=== PATIENT | female | born 1980 | race Caucasian/White ===

== ENCOUNTER 2017-06-25 12:59 | Emergency (ER) | payer SELFPAY ==
--- NOTE | 2017-06-25 13:06 | EDPHY ---
H & P Time Seen by Provider: 06/25/17 13:05 HPI/ROS: CHIEF COMPLAINT: Seizure HISTORY OF PRESENT ILLNESS: The patient presents to the ED after reported grand mal seizure at home. The patient reports remote history of seizure disorder. She is not on any anti epileptic medications currently. The patient does have a history of anxiety and depression. The patient is on a number of medications including Adderall and Zoloft. The patient did recently start Pristiq. The patient reports that she has had decreased sleep and insomnia secondary to stress surrounding her current family situation. The patient denies any additional coingestion as. She denies significant drug or alcohol use. The patient did bite her tongue is result of procedure today. She denies any additional significant traumatic injury. REVIEW OF SYSTEMS: A comprehensive 10 point review of systems is otherwise negative aside from elements mentioned in the history of present illness. Source: Patient Exam Limitations: No limitations - Medical/Surgical History Hx Asthma: No Hx Chronic Respiratory Disease: No Hx Diabetes: No Hx Cardiac Disease: No Hx Renal Disease: No Hx Cirrhosis: No Hx Alcoholism: No Hx HIV/AIDS: No Hx Splenectomy or Spleen Trauma: No Other PMH: Lymphoma. Bone Marrow transplant x2. hypothyroid. shoulder surgery. ongoing spinal nerve pain. skin infections - Social History Smoking Status: Never smoked - Physical Exam Exam: General Appearance: Alert, no distress, mildly postictal Head: Normocephalic atraumatic Neck: No midline cervical spine pain, normal range of motion Eyes: Pupils equal and round no pallor or injection ENT, Mouth: Mucous membranes moist, small nonsuturable tongue bite Respiratory: There are no retractions, lungs are clear to auscultation Cardiovascular: Slight tachycardia Gastrointestinal: Abdomen is soft and nontender, no masses, bowel sounds normal Neurological: A&O, normal motor function, normal sensory exam, normal cranial nerves Skin: Warm and dry, no rashes Musculoskeletal: Neck is supple nontender Extremities: Atraumatic Constitutional: Initial Vital Signs Temperature (C) 36.6 C 06/25/17 12:59 Heart Rate 102 H 06/25/17 12:59 Respiratory Rate 16 06/25/17 12:59 Blood Pressure 118/83 H 06/25/17 12:59 O2 Sat (%) 100 06/25/17 12:59 O2 Delivery Mode Room Air Allergies/Adverse Reactions: Sulfa (Sulfonamide Antibiotics) Allergy (Severe, Verified 12/25/15 19:29) Anaphylaxis Home Medications: Medication Instructions Recorded Amphet Asp and D/Amphet [Adderall 10 mg PO TID@0800,1200,1600 12/25/15 10 MG (*)] Dextroamphetamine/Amphetamine 30 mg PO DAILY 12/25/15 [Adderall Xr 30 mg Capsule] Estradiol [Vivelle-Dot 0.1MG (*)] 0.1 mg TD TUSA@0800 12/25/15 Levothyroxine [Synthroid 150 mcg 150 mcg PO DAILY06 12/25/15 (*)] Sertraline HCl [Zoloft 100mg (*)] 150 mg PO DAILY 12/25/15 Medical Decision Making - Diagnostics EKG Interpretation: EKG: Complete interpretation has been separately recorded in the [employer] archive. Summary impression: Sinus rhythm, rate 99, no ST segment elevation or depression, no QRS widening ED Course/Re-evaluation: The patient presents to the ED after witnessed seizure. The patient had no recurrent seizure activity in the emergency department. She has no traumatic injury aside from the superficial tongue abrasion. The patient did recently start Pristiq which certainly could have lowered her seizure threshold. The patient is noted to have a slight acidosis with a CO2 of 14 consistent with her seizure prior to arrival. The patient was placed on a monitor. She was observed in the emergency department without recurrent seizure activity. The patient had serial examinations. She remains neurologically intact. She has no evidence of meningitis or an acute infection. The patient will be discharged home with customary aftercare instructions. She is advised not to drive or participate in dangerous activities until cleared to do so by Neurology. Differential Diagnosis: Differential diagnosis considered includes seizure, status epilepticus, metabolic abnormality, medication side effect - Data Points Laboratory Results: Laboratory Results 06/25/17 13:58 06/25/17 13:58 06/25/17 06/25/17 06/25/17 13:58 13:58 13:58 WBC 8.92 10^3/uL 10^3/uL (3.80-9.50) RBC 4.01 10^6/uL L 10^6/uL (4.18-5.33) Hgb 13.2 g/dL g/dL (12.6-16.3) Hct 37.2 % L % (38.0-47.0) MCV 92.8 fL fL (81.5-99.8) MCH 32.9 pg pg (27.9-34.1) MCHC 35.5 g/dL g/dL (32.4-36.7) RDW 12.1 % % (11.5-15.2) Plt Count 204 10^3/uL 10^3/uL (150-400) MPV 9.9 fL fL (8.7-11.7) Neut % (Auto) 59.9 % % (39.3-74.2) Lymph % (Auto) 30.8 % % (15.0-45.0) Karn[place] % (Auto) 7.4 % % (4.5-13.0) Eos % (Auto) 0.6 % % (0.6-7.6) Baso % (Auto) 0.7 % % (0.3-1.7) Nucleat RBC Rel Count 0.0 % % (0.0-0.2) Absolute Neuts (auto) 5.35 10^3/uL 10^3/uL (1.70-6.50) Absolute Lymphs (auto) 2.75 10^3/uL 10^3/uL (1.00-3.00) Absolute Monos (auto) 0.66 10^3/uL 10^3/uL (0.30-0.80) Absolute Eos (auto) 0.05 10^3/uL 10^3/uL (0.03-0.40) Absolute Basos (auto) 0.06 10^3/uL 10^3/uL (0.02-0.10) Absolute Nucleated RBC 0.00 10^3/uL 10^3/uL (0-0.01) Immature Gran % 0.6 % % (0.0-1.1) Immature Gran # 0.05 10^3/uL 10^3/uL (0.00-0.10) Sodium 142 mEq/L mEq/L (134-144) Potassium 3.8 mEq/L mEq/L (3.5-5.2) Chloride 104 mEq/L mEq/L (97-110) Carbon Dioxide 14 mEq/l L mEq/l (22-31) Anion Gap 24 mEq/L H mEq/L (8-16) BUN 15 mg/dL mg/dL (7-23) Creatinine 0.8 mg/dL mg/dL (0.6-1.0) Estimated GFR > 60 Glucose 98 mg/dL mg/dL (70-100) Calcium 10.1 mg/dL mg/dL (8.5-10.4) Free T3 6.05 pg/mL H pg/mL (2.77-5.27) Total T3 Pending Beta HCG, Qual NEGATIVE Departure - Departure Disposition: Home, Routine, Self-Care Clinical Impression: Seizure disorder Condition: Good Instructions: Epilepsy (ED) Additional Instructions: 1. Please schedule a follow-up appointment with a neurologist you have been referred to for further evaluation of your seizure. The addition of Pristiq may have lowered your seizure threshold. Referrals: Rody Camara MD [Primary Care Provider] - As per Instructions Sachin Lazaro MD [Medical Doctor] - As per Instructions
--- NOTE | 2017-06-25 13:14 | CPEKG ---
Heart Rate: 99 RR Interval: 606 P-R Interval: 136 QRSD Interval: 88 QT Interval: 376 QTC Interval: 483 P [place]: 50 QRS [place]: 4 T Wave [place]: 39 EKG Severity - NORMAL ECG - EKG Impression: SINUS RHYTHM Electronically Signed By: Jasen Ghosh 25-Jun-2017 13:37:14
[2017-06-25 13:22] VITALS: RESP 16
[2017-06-25 14:04] LABS: % IMMATURE GRANULYOCYTES 0.6 % (0.0-1.1); ABSOLUTE IMMATURE GRANULOCYTES 0.05 10^3/uL (0.00-0.10); ADD DIFF? NO; ADD MORPH? NO; ADD SCAN? NO; ATYPICAL LYMPHOCYTE FLAG 10 (0-99); FRAGMENT RBC FLAG 0 (0-99); HEMATOCRIT 37.2 % (38.0-47.0); HEMOGLOBIN 13.2 g/dL (12.6-16.3); LEFT SHIFT FLG 0 (0-99); LIPEMIA HEMOLYSIS FLAG 90 (0-99); MEAN CELL HEMOGLOBIN 32.9 pg (27.9-34.1); MEAN CELL HEMOGLOBIN CONCENTR. 35.5 g/dL (32.4-36.7); MEAN CELL VOLUME 92.8 fL (81.5-99.8); MEAN PLATELET VOLUME 9.9 fL (8.7-11.7); PLATELET CLUMPS FLAG 0 (0-99); PLATELET COUNT 204 10^3/uL (150-400); RED BLOOD CELL COUNT 4.01 10^6/uL (4.18-5.33); RED CELL DISTRIBUTION WIDTH 12.1 % (11.5-15.2)
[2017-06-25 14:22] LABS: ANION GAP 24 mEq/L (8-16); CALCIUM 10.1 mg/dL (8.5-10.4); CARBON DIOXIDE 14 mEq/l (22-31); CHLORIDE 104 mEq/L (97-110); CREATININE 0.8 mg/dL (0.6-1.0); GLOMERULAR FILTRATION RATE > 60; GLUCOSE 98 mg/dL (70-100); POTASSIUM 3.8 mEq/L (3.5-5.2); SODIUM 142 mEq/L (134-144)
[2017-06-25 15:08] VITALS: BP 117/85; PULSE 92; TEMP 97.2; O2SAT 94
[2017-06-27 11:35] LABS: CHOLESTEROL 204 mg/dL (140-200); HIGH DENSITY LIPOPROTEIN 68 mg/dL (40-80); LDL/HDL RATIO 1.63 RATIO (1.00-3.22); LOW DENSITY LIPOPROTEIN 111 mg/dL (70-100); NON-HIGH DENSITY LIPOPROTEIN 136 mg/dL (90-129); TRIGLYCERIDE 128 mg/dL (35-135); VERY LOW DENSITY LIPOPROTEINS 25 mg/dL (8-25)
[2017-06-27 11:47] LABS: VITAMIN D 25-HYDROXY TOTAL 62.1 ng/mL (30-100)
== END 2017-06-25 15:11 | disposition home or self-care (01) ==
LOC: EDUNIT#
DX: G40.909 Epilepsy, unspecified, not intractable, without status epilepticus (principal)
CPT/HCPCS: 84480-90; 84481-90